=== PATIENT | male | born 2000 | race Caucasian/White ===

== ENCOUNTER 2020-11-04 15:38 | Outpatient (CLI) | payer OTHER | END 2020-11-04 23:59 | disposition home or self-care (01) | LOC: RAD 15:38 | PROVIDERS: ATTEND Physician Assistant | DX: I86.1 Scrotal varices (principal); N50.812 Left testicular pain; J06.9 Acute upper respiratory infection, unspecified; Z20.828 Contact with and (suspected) exposure to other viral communicable diseases; Z90.79 Acquired absence of other genital organ(s) ==